=== PATIENT | male | born 1955 | race Caucasian/White ===

== ENCOUNTER → 2021-03-15 14:19 | Outpatient (CLI) | payer MEDICARE, SELFPAY ==
--- NOTE | ~2021-03-15 | MR_ITS ---
EXAMINATION: MR lumbar spine wo con DATE: 03/15/2021 15:10 INDICATION: Low back pain, unspecified. TECHNIQUE: Magnetic resonance imaging (MRI) of the lumbar spine was performed without intravenous con trast. Sequences included sagittal T2-weighted FSE, sagittal T2-weighted FS FSE, sagittal T1-weighted FSE, and axial T2-weighted FSE. COMPARISON: None FINDINGS: Bone alignment is normal. There is mild chronic anterior wedging of T12 and L1 vertebral dio dies. There is mildly decreased disc height at L3-L4, L4-L5, and L5-S1 with endplate remodeling. The distal spinal cord signal intensity is normal. The conus medullaris is at L1. The following disc leve ls are specifically discussed: L1-L2: The disc is bulging. There is no facet joint osteoarthritis. There is mild left neural foramin al stenosis. There is mild central canal stenosis. L2-L3: The disc is bulging. There is no facet joint osteoarthritis. There is mild bilateral neural fo raminal stenosis. There is mild central canal stenosis. L3-L4: The disc is bulging. There is mild bilateral facet joint osteoarthritis. There is mild bilater al neural foraminal stenosis. There is mild central canal stenosis. L4-L5: The disc is bulging. There is mild right and moderate left facet joint osteoarthritis. There i s mild right and moderate left neural foraminal stenosis. There is mild central canal stenosis. L5-S1: The disc is bulging and has an annular fissure. There is severe bilateral facet joint osteoart hritis. There is moderate bilateral neural foraminal stenosis. There is mild central canal stenosis. IMPRESSION: 1. Moderate lumbar spondylosis. Reviewed, dictated and finalized at location A.
== END ==
PROVIDERS: PCP Internal Medicine; Visit Provider Internal Medicine
DX: M47.26 Other spondylosis with radiculopathy, lumbar region (principal)
CPT/HCPCS: 72148

== ENCOUNTER → 2021-09-11 08:50 | Outpatient (CLI) | payer MEDICARE, SELFPAY ==
--- NOTE | ~2021-09-11 | MR_ITS ---
EXAMINATION: MR lumbar spine wo con DATE: 09/11/2021 09:25 INDICATION: Low back pain. Bilateral foot numbness. TECHNIQUE: Magnetic resonance imaging (MRI) of the lumbar spine was performed without intravenous con trast. Sequences included sagittal T2-weighted FSE, sagittal T2-weighted FS FSE, sagittal T1-weighted FSE, and axial T2-weighted FSE. COMPARISON: Lumbar spine MRI 03/15/2021 FINDINGS: Bone alignment is normal. There is mild chronic anterior wedging of T12 and L1 vertebral dio dies. There is mildly decreased disc height at L3-L4 and L4-L5 and moderately decreased disc height a t L5-S1. The distal spinal cord signal intensity is normal. The conus medullaris is at L1. The follow ing disc levels are specifically discussed: L1-L2: The disc is bulging. There is mild right facet joint osteoarthritis. There is no neural forami nal stenosis. There is mild central canal stenosis. L2-L3: The disc is bulging and has an annular fissure. There is mild bilateral facet joint osteoarthr itis. There is mild bilateral neural foraminal stenosis. There is mild central canal stenosis. L3-L4: The disc is bulging. There is mild bilateral facet joint osteoarthritis. There is mild bilater al neural foraminal stenosis. There is mild central canal stenosis. L4-L5: The disc is bulging with superimposed left central extrusion. There is mild bilateral facet allie int osteoarthritis. There is mild bilateral neural foraminal stenosis. There is mild central canal st enosis. L5-S1: The disc is bulging and has an annular fissure. There is severe bilateral facet joint osteoart hritis. There is moderate bilateral neural foraminal stenosis. There is mild central canal stenosis. IMPRESSION: 1. Moderate lumbar spondylosis, stable from 03/15/2021. Reviewed, dictated and finalized at location A.
== END ==
PROVIDERS: PCP Internal Medicine; Visit Provider Internal Medicine
DX: M79.672 Pain in left foot (principal); M47.896 Other spondylosis, lumbar region
CPT/HCPCS: 72148

== ENCOUNTER 2022-01-21 10:56 | Outpatient (CLI) | payer MEDICARE, SELFPAY ==
[2022-01-21 11:26] LABS: Basophils Percent Auto 0.8 % (0.2-1.2); Eosinophils Absolute Auto 0.2 K/mm3 (0-0.3); Eosinophils Percent Auto 4.7 % (0-4.4); Hematocrit 47.7 % (42.0-52.0); Hemoglobin 15.9 g/dL (14.0-18.0); Lymphocytes Percent Auto 30.4 % (18.3-44.2); Mean Corpuscular HGB Conc 33.3 g/dl (32-36); Mean Corpuscular Hemoglobin 30.6 pg (26-34); Mean Corpuscular Volume 91.7 fl (80-100); Mean Platelet Volume 10.5 fl (7.4-10.4); Monocytes Absolute Auto 0.7 K/mm3 (0.1-0.6); Monocytes Percent Auto 14.6 % (2.6-8.5); Neutrophils Absolute Auto 2.5 K/mm3 (1.3-6.7); Neutrophils Percent Auto 49.5 % (45.5-73.1); Platelet Count Result 198 k/mm3 (150-375); Red Cell Distribution Width 13.1 % (11.5-14.5); White Blood Count 4.9 K/mm3 (4.5-10.0)
[2022-01-21 11:44] LABS: Alanine Aminotransferase 26 U/L (6-50); Albumin Level 4.4 g/dL (3.5-5.1); Alkaline Phosphatase 72 U/L (38-126); Anion Gap 10 mmol/L (8-16); Aspartate Amino Transferase 31 U/L (17-59); Bilirubin,Total 0.6 mg/dL (0.2-1.3); Blood Urea Nitrogen 18 mg/dL (9-20); Calcium 9.5 mg/dL (8.4-10.2); Carbon Dioxide 25 mmol/L (22-30); Chloride 103 mmol/L (98-107); Estimated Glomerular Filt Rate > 60; Glucose 110 mg/dL (65-110); Potassium 4.3 mmol/L (3.4-5.0); Sodium 138 mmol/L (137-145)
[2022-01-21 11:48] LABS: Hemoglobin A1C 5.5 % (<5.7)
[2022-01-24 23:25] LABS: Methylmalonic Acid 144 nmol/L (87-318)
[2022-01-27 13:54] LABS: Vitamin B1 12 nmol/L (8-30)
== END 2022-01-21 10:57 | disposition home or self-care (01) ==
PROVIDERS: PCP Internal Medicine; Visit Provider Student in an Organized Health Care Education/Training Program
DX: G62.9 Polyneuropathy, unspecified (principal)
CPT/HCPCS: 36415; 80053; 82607; 82746; 83036; 83921; 84425; 85025; 86334; 86335

== ENCOUNTER 2022-08-24 07:31 | Outpatient (CLI) | payer MEDICARE, SELFPAY ==
--- NOTE | 2022-08-24 07:44 | ECHO_ITS ---
Patient Info Name: Aaron Yarbrough Age: 66 years : 1955 Gender: Male Ht: 68 in Wt: 190 lbs BSA: 2.05 m2 HR: 68 bpm BP: 123 / 89 mmHg Heart Rhythm: Sinus Rhythm Exam Date: 08/24/2022 8:04 AM Exam Location: [facility] Patient Status: Outpatient Admit Date: 08/24/2022 Staff Ordering Physician: Gemini Holder PA-C Pulverizer Feeder: Erik Wright RDCS, RT Attending Provider: Gemini Holder PA-C Referring Physician: Glory MENDOZA; Exam Type: CA echo doppler color flow Study Info Indications R01.1 - Cardiac murmur, unspecified Complete two-dimensional, color flow and Doppler transthoracic echocardiogram is performed. Strain analysis performed. Summary 1. Complete two-dimensional, color flow and Doppler transthoracic echocardiogram is performed. 2. Left ventricular chamber dimension is normal. 3. Left ventricular systolic function is normal, estimated at 55-60%. 4. There is moderately increased left ventricular wall thickness. 5. The left ventricular diastolic function is grade I diastolic dysfunction. 6. Right ventricular systolic function is normal. 7. The aortic valve is probable trileaflet. 8. There is severe aortic valve calcification. 9. There is moderate to severe aortic valve stenosis with a peak velocity of 380 cm/s, mean gradient of 36 mmHg, and aortic valve area of 0.8 cm2. 10. There is moderate aortic valve regurgitation. 11. The mitral valve has thickened leaflets and calcified leaflets. 12. The mitral valve annulus is mildly calcified. 13. There is mild mitral valve regurgitation. 14. There is mild tricuspid valve regurgitation. 15. There is trivial pericardial effusion. Left Ventricle Left ventricular chamber dimension is normal. Left ventricular systolic function is normal, estimated at 55-60%. There is moderately increased left ventricular wall thickness. The left ventricular diastolic function is grade I diastolic dysfunction. Global longitudinal strain is abnormal at -15 %. Right Ventricle Right ventricular chamber dimension is normal. Right ventricular systolic function is normal. Left Atria Left atrial chamber dimension is normal. Right Atria Right atrial chamber dimension is normal. Atrial Septum Intact interatrial septum visualized by color flow imaging. Aortic Valve The aortic valve is probable trileaflet. There is moderate to severe aortic valve stenosis with a peak velocity of 380 cm/s, mean gradient of 36 mmHg, and aortic valve area of 0.8 cm2. There is moderate aortic valve regurgitation. There is severe aortic valve calcification. Pulmonic Valve The pulmonic valve is not well visualized. Mitral Valve The mitral valve has thickened leaflets and calcified leaflets. There is no mitral valve stenosis. There is mild mitral valve regurgitation. The mitral valve annulus is mildly calcified. Tricuspid Valve There is mild tricuspid valve regurgitation. Pericardium/Pleural There is trivial pericardial effusion. Inferior Vena Cava Normal inferior vena cava with >50% collapse upon inspiration consistent with normal right atrial pressure, 3 mmHg. Aorta The aortic root size at the sinus of Valsalva is normal. Left Ventricular Outflow Tract Name Value Normal LVOT 2D
== END 2022-08-24 07:32 | disposition home or self-care (01) ==
LOC: ANHCARD 07:35
PROVIDERS: PCP Physician Assistant Medical; Visit Provider Physician Assistant Medical
DX: R01.1 Cardiac murmur, unspecified (principal); I34.0 Nonrheumatic mitral (valve) insufficiency; I35.1 Nonrheumatic aortic (valve) insufficiency; I36.1 Nonrheumatic tricuspid (valve) insufficiency
CPT/HCPCS: 93306

== ENCOUNTER 2024-10-22 08:50 | Outpatient (CLI) | payer MEDICARE, SELFPAY ==
--- NOTE | 2024-10-22 10:30 | NEURO_ITS ---
Impression: # Complains of numbness of feet. Non-diabetic. ? # Normal Nerve Conduction Study. ? # Normal needle/EMG exam without any neurogenic changes noted. ? # Clinical correlation recommended. Not enough to make diagnosis of neuropathy at this time. Could be related to small fiber neuropathy. Nerve Conduction Studies Anti Sensory Summary Table ?Stim Site NR Peak (ms) P-T Amp (?V) Site1 Site2 Delta-P (ms) Dist (cm) Tevin (m/s) Left Sup Fibular Anti Sensory (Ant Lat Mall) 14 cm ? 3.6 16.2 14 cm Ant Lat Mall 3.6 16.0 44 Right Sup Fibular Anti Sensory (Ant Lat Mall) 14 cm ? 3.6 10.7 14 cm Ant Lat Mall 3.6 16.0 44 Left Sural Anti Sensory (Lat Mall) Calf ? 3.8 12.5 Calf Lat Mall 3.8 16.0 42 Right Sural Anti Sensory (Lat Mall) Calf ? 3.8 13.1 Calf Lat Mall 3.8 16.0 42 Motor Summary Table ?Stim Site NR Onset (ms) O-P Amp (mV) Site1 Site2 Delta-0 (ms) Dist (cm) Tevin (m/s) Left Peroneal Motor (Vastus Med) Ankle ? 4.1 4.5 Popit Ankle 8.9 40.0 45 Popit ? 13.0 3.4 Right Peroneal Motor (Vastus Med) Ankle ? 3.5 1.7 Popit Ankle 8.8 38.0 43 Popit ? 12.3 1.3 Left Tibial Motor (Abd Waite Brev) Ankle ? 4.5 6.7 Knee Ankle 9.3 41.0 44 Knee ? 13.8 3.6 Right Tibial Motor (Abd Waite Brev) Ankle ? 4.1 5.2 Knee Ankle 9.3 41.0 44 Knee ? 13.4 3.0 F Wave Studies ?NR F-Lat (ms) L-R F-Lat (ms) Left Peroneal (Mrkrs) (EDB) ? 55.39 0.83 Right Peroneal (Mrkrs) (EDB) ? 54.56 0.83 Left Tibial (Mrkrs) (Abd Hallucis) ? 54.78 1.05 Right Tibial (Mrkrs) (Abd Hallucis) ? 55.83 1.05 EMG ?Side Muscle Nerve Root Ins Act Fibs Amp Dur Recrt Comment Right AntTibialis Dp Br Fibular L4-5 Nml Nml Nml Nml Nml Right Gastroc Tibial S1-2 Nml Nml Nml Nml Nml Right Fibularis Long Sup Br Fibular L5-S1 Nml Nml Nml Nml Nml Right Flex Dig Long Tibial L5-S2 Nml Nml Nml Nml Nml Right Ext Dig Brev Dp Br Fibular L5, S1 Nml Nml Nml Nml Nml Right QuadratusFem QuadFemoris L4-5, S1 Nml Nml Nml Nml Nml Left AntTibialis Dp Br Fibular L4-5 Nml Nml Nml Nml Nml Left Gastroc Tibial S1-2 Nml Nml Nml Nml Nml Left Fibularis Long Sup Br Fibular L5-S1 Nml Nml Nml Nml Nml Left Flex Dig Long Tibial L5-S2 Nml Nml Nml Nml Nml Left Ext Dig Brev Dp Br Fibular L5, S1 Nml Nml Nml Nml Nml Left QuadratusFem QuadFemoris L4-5, S1 Nml Nml Nml Nml Nml MTDD
== END 2024-10-22 08:51 | disposition home or self-care (01) ==
LOC: ANHNEURO 08:53
PROVIDERS: PCP Physician Assistant Medical; Visit Provider Physician Assistant Medical
DX: G62.9 Polyneuropathy, unspecified (principal)
CPT/HCPCS: 95886; 95910